=== PATIENT | female | born 1940 | race African-American/Black ===

== ENCOUNTER 2024-04-20 14:55 | Emergency (ER) | payer OTHER ==
[~2024-04-20] VITALS: Ht 167.6 cm; Wt 68.0 kg
[2024-04-20 14:59] VITALS: O2SAT 97
[2024-04-20] MEDS ORDERED: ACETAMINOPHEN 325MG TABLET PO ONE (16:15)
[2024-04-20 20:49] VITALS: BP 199/103; PULSE 68; RESP 16; TEMP 36.66960; O2SAT 97
[2024-04-20 20:53] VITALS: TEMP 98
[2024-04-20] MEDS: ACETAMINOPHEN 325MG TABLET PO NR (20:53)
== END 2024-04-20 20:54 | disposition home or self-care (01) ==
LOC: ER 14:55 → EDBD 14:55 → ER 20:54
DX: S09.90XA Unspecified injury of head, initial encounter (principal); E11.9 Type 2 diabetes mellitus without complications; I10 Essential (primary) hypertension; Z85.9 Personal history of malignant neoplasm, unspecified; Z88.0 Allergy status to penicillin; W18.39XA Other fall on same level, initial encounter; Y93.89 Activity, other specified; Y92.89 Other specified places as the place of occurrence of the external cause; Y99.8 Other external cause status
CPT/HCPCS: 99284